=== PATIENT | male | born 1975 | race Hispanic/Latino ===

== ENCOUNTER 2020-09-24 15:12 | Emergency (ER) | payer OTHER ==
--- NOTE | 2020-09-24 16:11 | Event Note ---
ED Screening Note ED Screening Note: states he has been under a lot of stress states he has not had an appetite states he has been having vomiting and diarrhea states he hit his head and had a brief episode of LOC c/o headache and neck pain hx of C7 fracture This initial assessment/diagnostic orders/clinical plan/treatment(s) is/are subject to change based on patients health status, clinical progression and re- assessment by fellow clinical providers in the ED. Further treatment and workup at subsequent clinical providers discretion. Patient/guardian urged not to elope from the ED as their condition may be serious if not clinically assessed and managed. Initial orders include: CT head/neck, EKG, labs
--- NOTE | 2020-09-24 16:15 | XRay Report ---
CHEST 2 VIEWS INDICATION: syncope. COMPARISON: None FINDINGS: Support devices: None. Heart: Within normal limits. Lungs/pleura: No acute air space or interstitial disease. No pneumothorax. Additional findings: None. IMPRESSION: No acute findings. Signer Name: Lg Esteban Jr, MD Signed: 09/24/2020 4:10 PM Workstation Name: [id number]
[2020-09-24 16:28] LABS: Basophils % (Auto) 0.3 % (0.0-1.8); Eosinophils # (Auto) 0.1 K/mm3 (0.0-0.4); Eosinophils % (Auto) 1.1 % (0.0-4.3); Hematocrit 51.6 % (35.5-45.6); Hemoglobin 17.4 gm/dl (11.8-15.2); Lymphocytes # (Auto) 1.1 K/mm3 (1.2-5.4); Mean Corpuscular HGB Conc 34 % (32-34); Mean Corpuscular Volume 88 fl (84-94); Monocytes # (Auto) 1.2 K/mm3 (0.0-0.8); Monocytes % (Auto) 14.4 % (0.0-7.3); Platelet Count 274 K/mm3 (140-440); Red Blood Count 5.84 M/mm3 (3.65-5.03); Red Cell Distribution Width 14.6 % (13.2-15.2)
--- NOTE | 2020-09-24 16:29 | Cat Scan Report ---
CT HEAD WITHOUT CONTRAST INDICATION / CLINICAL INFORMATION: syncope. TECHNIQUE: Axial imaging performed from the skull apex through the skull base without the use of cont rast. Sagittal and coronal reformatted images. All CT scans at this location are performed using CT dose reduction for ALARA by means of automated exposure control. COMPARISON: None available. FINDINGS: CEREBRAL PARENCHYMA: No significant abnormality. No acute territorial infarct. HEMORRHAGE: None. EXTRA-AXIAL SPACES: Normal in size and morphology for the patient's age. VENTRICULAR SYSTEM: Normal in size and morphology for the patient's age. MIDLINE SHIFT OR HERNIATION: None. CEREBELLUM / BRAINSTEM: No significant abnormality. CALVARIUM: No significant abnormality. ORBITS: Normal as visualized. PARANASAL SINUSES / MASTOID AIR CELLS: Normal as visualized. SOFT TISSUES of HEAD: No significant abnormality. ADDITIONAL FINDINGS: None. IMPRESSION: No acute intracranial abnormality. Signer Name: Lg Esteban Jr, MD Signed: 09/24/2020 4:24 PM Workstation Name: [id number]
[2020-09-24 16:40] LABS: Alanine Aminotransferase 19 units/L (7-56); Albumin 4.9 g/dL (3.9-5); BUN/Creatinine Ratio 16; Blood Urea Nitrogen 19 mg/dL (9-20); Calcium 8.9 mg/dL (8.4-10.2); Hemolysis Index 32
--- NOTE | 2020-09-24 17:48 | Cat Scan Report ---
CT cervical spine wo con INDICATION / CLINICAL INFORMATION: 44 years Male; hit head, had LOC, and having neck pain. TECHNIQUE: Axial CT images of the cervical spine were obtained. Sagittal and coronal reformatted images were pr oduced. All CT scans at this location are performed using CT dose reduction for ALARA by means of aut omated exposure control. COMPARISON: No previous exams are available for comparison. FINDINGS: POST-SURGICAL CHANGES: There is fusion at C7-T1 with posterior instrumentation. There is no evidence of hardware failure. The left pedicle screw at the T1 level takes slightly more medial course. ALIGNMENT: There is mild reversal of the cervical lordosis and curvature of the upper cervical spine, convex toward the left. However, there is no significant spondylolisthesis. VERTEBRAE: There is disc space narrowing with associated endplate changes at C4-5 and C5-6. Mild find ings are noted anteriorly at C3-4. However, there is no CT evidence of acute fracture of the cervical spine. INTRAVERTEBRAL DISCS: The left facet and uncovertebral joint hypertrophy at C3-4 results in marked le ft neural foraminal narrowing. There is also encroachment on the left lateral recess. The central spondylosis at C4-5 appears to encroach on the ventral cord. There is effacement of the r ight lateral recess with marked foraminal narrowing. Slightly milder narrowing is seen on the left. The posterior spondylosis at C5-6 also encroaches on the ventral cord. There is marked neural foramin al narrowing bilaterally. The neural foramen at C6-7 appear patent. PARASPINAL SOFT TISSUES: No prevertebral soft tissue fluid collections are identified. ADDITIONAL FINDINGS: None. IMPRESSION: 1. There is no CT evidence of acute fracture involving the cervical spine. 2. There are multilevel degenerative changes as detailed above. Signer Name: Sung Dunham MD Signed: 09/24/2020 5:44 PM Workstation Name: [id number]
[2020-09-24 18:27] LABS: Bilirubin,Urine NEG (Negative); Blood,Urine NEG (Negative); Color,Urine Yellow (Yellow); Mucus,Urine FEW /HPF
[2020-09-24] MEDS ORDERED: SODIUM CHLORIDE 0.9% 1000 ML 1,000 ML IV ONE ×2 (18:42→21:11)
[2020-09-24] MEDS ORDERED: HYDROcodone/ACETAMINOPHEN 5-325 MG TAB PO ONE (18:56)
[2020-09-24] MEDS ORDERED: PREGABALIN 25 MG CAP PO ONE (18:56)
--- NOTE | 2020-09-24 19:05 | Emergency Department Report ---
ED Syncope HPI - General Chief Complaint: Syncope Stated Complaint: SYNCOPE Time Seen by Provider: 09/24/20 16:09 Source: patient Exam Limitations: no limitations - History of Present Illness Initial Comments: 44-year-old male with a past medical history of depression, bipolar disorder, PTSD, hypothyroidism, and chronic pain secondary to previous injury (with history of spinal fusion to C7-T1) presents to the hospital from [place] with complaints of syncopal episode. Patient states he is been depressed and stressed and not eating or drinking appropriately for the last 4 days. Patient reports that he is also had watery nonbloody diarrhea for the past 3 days without fever fever. He had one episode of vomiting after drinking a lot of water but denies persistent nausea. Complains of generalized crampy abdominal pain. Today patient went to the bathroom, took a shower, felt weak, and had a syncopal episode while falling forward and striking his left forehead on the wa ll. He states he also has exacerbation in his chronic neck pain after fall. 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 He does not complain of chest pain or shortness of breath As per MAR provided by [place] patient is currently taking multiple psychiatric medications including but not limited to lithium, clonidine, and Adderall Patient spent initial part of interview explaining all the chronic pain issues he has secondary to previous injury and surgeries that his neck pain was exacerbated by the syncopal episode - Related Data Allergies/Adverse Reactions: Allergies adhesive Allergy (Verified 12/28/14 16:35) Rash ketorolac tromethamine [From Toradol] Allergy (Verified 12/28/14 16:35) Unknown naltrexone Allergy (Verified 12/28/14 16:36) Unknown Home Medications: Ambulatory Orders Diphenoxylate/Atropine [Lomotil] 1 tab PO QID PRN #20 tablet 12/28/14 HYDROcodone/APAP 10-325 [[place] 10-325 mg TAB] 10 - 325 mg PO PRN PRN 12/28/14 HYDROcodone/APAP 5-325 [[place] 5/325] 1 - 2 each PO Q6HR PRN #14 tablet 12/28/14 Levothyroxine [Synthroid] 1 mcg PO QAM 12/28/14 [place] Carbonate [[place] Carbonate ER] 450 mg PO BID 12/28/14 OLANzapine [ZyPREXA] 5 mg PO QDAY 12/28/14 Pregabalin [Lyrica] 200 mg PO BID 12/28/14 Promethazine [Phenergan] 25 mg PO Q6H PRN #20 tablet 12/28/14 Promethazine [Phenergan] 25 mg [place] Q6HR PRN #10 supp.rect 12/28/14 Testosterone [Androgel 1%] 1 applicatio TD QDAY 12/28/14 clonazePAM [KlonoPIN] 1 mg PO TID PRN 12/28/14 Hydrocortisone [Hydrocortisone 2.5% LOTION] 1 applicatio TP TID PRN #1 bottle 09/24/20 Ondansetron [Zofran Odt] 4 mg PO Q8HR PRN #14 tab.rapdis 09/24/20 ED Review of Systems ROS: Stated complaint: SYNCOPE Other details as noted in HPI Comment: All other systems reviewed and negative ED Past Medical Hx - Past Medical History Previous Medical History?: Yes Hx Psychiatric Treatment: Yes (depression, bipolar, PTSD) Additional medical history: hypothyroidism - Surgical History Additional Surgical History: right femur jana, plate in forehead, spinal fusion C7-T1 - Social History Smoking Status: Never Smoker Substance Use Type: None - Medications Home Medications: Home Medications Medication Instructions Recorded Confirmed Last Taken Type Diphenoxylate/Atropine [Lomotil] 1 tab PO QID PRN #20 tablet 12/28/14 Unknown Rx HYDROcodone/APAP 10-325 [[place] 10 - 325 mg PO PRN PRN 12/28/14 12/28/14 1 Day Ago History 10-325 mg TAB] ~12/27/14 HYDROcodone/APAP 5-325 [[place] 1 - 2 each PO Q6HR PRN #14 tablet 12/28/14 Unknown Rx 5/325] Levothyroxine [Synthroid] 1 mcg PO QAM 12/28/14 12/28/14 12/28/14 History [place] Carbonate [[place] 450 mg PO BID 12/28/14 12/28/14 12/28/14 History Carbonate ER] OLANzapine [ZyPREXA] 5 mg PO QDAY 12/28/14 12/28/14 12/28/14 History Pregabalin [Lyrica] 200 mg PO BID 12/28/14 12/28/14 12/28/14 History Promethazine [Phenergan] 25 mg PO Q6H PRN #20 tablet 12/28/14 Unknown Rx Promethazine [Phenergan] 25 mg [place] Q6HR PRN #10 supp.rect 12/28/14 Unknown Rx Testosterone [Androgel 1%] 1 applicatio TD QDAY 12/28/14 12/28/14 12/28/14 History clonazePAM [KlonoPIN] 1 mg PO TID PRN 12/28/14 12/28/14 12/28/14 History Hydrocortisone [Hydrocortisone 1 applicatio TP TID PRN #1 bottle 09/24/20 Unknown Rx 2.5% LOTION] Ondansetron [Zofran Odt] 4 mg PO Q8HR PRN #14 tab.rapdis 09/24/20 Unknown Rx ED Physical Exam - General Limitations: No Limitations - Other Other exam information: General: No acute distress Head: Superficial abrasion to left forehead Eyes: normal appearance ENT: Moist mucous membranes Neck: Surgical scar noted to midline posterior neck at area of fusion surgery. Tenderness to right cervical muscles. Full range of motion Chest: Clear to auscultation bilaterally CV: Regular rate and rhythm Abdomen: Soft, normal bowel sounds, mild generalized tenderness, nondistended, no rebound or guarding Back: Normal inspection Extremity: Normal inspection, full range of motion Neuro: Alert O x 3, no facial asymmetry, speech clear, no gross motor sensory deficit Psych: Appropriate behavior Skin: Mild erythematous rash to on the face adjacent to the nose bilaterally. Rash is at area that is typically covered by a surgical mass ED Course Vital Signs 09/24/20 15:27 Temperature 97.4 F L Pulse Rate 90 Respiratory 18 Rate Blood Pressure 135/91 O2 Sat by Pulse 99 Oximetry ED Medical Decision Making - Lab Data Result diagrams: 09/24/20 15:52 09/24/20 15:52 Lab Results 09/24/20 09/24/20 09/24/20 Range/Units 15:52 15:52 18:11 WBC 8.4 (4.5-11.0) K/mm3 RBC 5.84 H (3.65-5.03) M/mm3 Hgb 17.4 H (11.8-15.2) gm/dl Hct 51.6 H (35.5-45.6) % MCV 88 (84-94) fl MCH 30 (28-32) pg MCHC 34 (32-34) % RDW 14.6 (13.2-15.2) % Plt Count 274 (140-440) K/mm3 Lymph % (Auto) 13.0 L (13.4-35.0) % [place] % (Auto) 14.4 H (0.0-7.3) % Eos % (Auto) 1.1 (0.0-4.3) % Baso % (Auto) 0.3 (0.0-1.8) % Lymph # (Auto) 1.1 L (1.2-5.4) K/mm3 [place] # (Auto) 1.2 H (0.0-0.8) K/mm3 Eos # (Auto) 0.1 (0.0-0.4) K/mm3 Baso # (Auto) 0.0 (0.0-0.1) K/mm3 Seg Neutrophils % 71.2 H (40.0-70.0) % Seg Neutrophils # 6.0 (1.8-7.7) K/mm3 Sodium 140 (137-145) mmol/L Potassium 4.2 (3.6-5.0) mmol/L Chloride 104.4 (98-107) mmol/L Carbon Dioxide 24 (22-30) mmol/L Anion Gap 16 mmol/L BUN 19 (9-20) mg/dL Creatinine 1.2 (0.8-1.3) mg/dL Estimated GFR > 60 ml/min BUN/Creatinine Ratio 16 % Glucose 96 (75-100) mg/dL Calcium 8.9 (8.4-10.2) mg/dL Total Bilirubin 0.40 (0.1-1.2) mg/dL AST 17 (5-40) units/L ALT 19 (7-56) units/L Alkaline Phosphatase 90 (35-129) units/L Troponin T < 0.010 (0.00-0.029) ng/mL Total Protein 7.1 (6.3-8.2) g/dL Albumin 4.9 (3.9-5) g/dL Albumin/Globulin Ratio 2.2 % Urine Color Yellow (Yellow) Urine Turbidity Clear (Clear) Urine pH 6.0 (5.0-7.0) Ur Specific [place] 1.026 (1.003-1.030) Urine Protein 30 mg/dl (Negative) mg/dL Urine Glucose (UA) Neg (Negative) mg/dL Urine Ketones Neg (Negative) mg/dL Urine Blood Neg (Negative) Urine Nitrite Neg (Negative) Urine Bilirubin Neg (Negative) Urine Urobilinogen 2.0 (<2.0) mg/dL Ur Leukocyte Esterase Neg (Negative) Urine WBC (Auto) 1.0 (0.0-6.0) /HPF Urine RBC (Auto) 1.0 (0.0-6.0) /HPF Urine Mucus Few /HPF [place] (0.0-1.2) mmol/L 09/24/20 Range/Units 18:53 WBC (4.5-11.0) K/mm3 RBC (3.65-5.03) M/mm3 Hgb (11.8-15.2) gm/dl Hct (35.5-45.6) % MCV (84-94) fl MCH (28-32) pg MCHC (32-34) % RDW (13.2-15.2) % Plt Count (140-440) K/mm3 Lymph % (Auto) (13.4-35.0) % [place] % (Auto) (0.0-7.3) % Eos % (Auto) (0.0-4.3) % Baso % (Auto) (0.0-1.8) % Lymph # (Auto) (1.2-5.4) K/mm3 [place] # (Auto) (0.0-0.8) K/mm3 Eos # (Auto) (0.0-0.4) K/mm3 Baso # (Auto) (0.0-0.1) K/mm3 Seg Neutrophils % (40.0-70.0) % Seg Neutrophils # (1.8-7.7) K/mm3 Sodium (137-145) mmol/L Potassium (3.6-5.0) mmol/L Chloride (98-107) mmol/L Carbon Dioxide (22-30) mmol/L Anion Gap mmol/L BUN (9-20) mg/dL Creatinine (0.8-1.3) mg/dL Estimated GFR ml/min BUN/Creatinine Ratio % Glucose (75-100) mg/dL Calcium (8.4-10.2) mg/dL Total Bilirubin (0.1-1.2) mg/dL AST (5-40) units/L ALT (7-56) units/L Alkaline Phosphatase (35-129) units/L Troponin T (0.00-0.029) ng/mL Total Protein (6.3-8.2) g/dL Albumin (3.9-5) g/dL Albumin/Globulin Ratio % Urine Color (Yellow) Urine Turbidity (Clear) Urine pH (5.0-7.0) Ur Specific [place] (1.003-1.030) Urine Protein (Negative) mg/dL Urine Glucose (UA) (Negative) mg/dL Urine Ketones (Negative) mg/dL Urine Blood (Negative) Urine Nitrite (Negative) Urine Bilirubin (Negative) Urine Urobilinogen (<2.0) mg/dL Ur Leukocyte Esterase (Negative) Urine WBC (Auto) (0.0-6.0) /HPF Urine RBC (Auto) (0.0-6.0) /HPF Urine Mucus /HPF [place] 0.5 (0.0-1.2) mmol/L - EKG Data -: EKG Interpreted by [place] EKG shows normal: sinus rhythm, ST-T waves (no stemi) Rate: normal (89) - Radiology Data Radiology results: report reviewed CT HEAD WITHOUT CONTRAST INDICATION / CLINICAL INFORMATION: syncope. TECHNIQUE: Axial imaging performed from the skull apex through the skull base without the use of contrast. Sagittal and coronal reformatted images. All CT scans at this location are performed using CT dose reduction for ALARA by means of automated exposure control. COMPARISON: None available. FINDINGS: CEREBRAL PARENCHYMA: No significant abnormality. No acute territorial infarct. HEMORRHAGE: None. EXTRA-AXIAL SPACES: Normal in size and morphology for the patient's age. VENTRICULAR SYSTEM: Normal in size and morphology for the patient's age. MIDLINE SHIFT OR HERNIATION: None. CEREBELLUM / BRAINSTEM: No significant abnormality. CALVARIUM: No significant abnormality. ORBITS: Normal as visualized. PARANASAL SINUSES / MASTOID AIR CELLS: Normal as visualized. SOFT TISSUES of HEAD: No significant abnormality. ADDITIONAL FINDINGS: None. IMPRESSION: No acute intracranial abnormality. CT cervical spine wo con INDICATION / CLINICAL INFORMATION: 44 years Male; hit head, had LOC, and having neck pain. TECHNIQUE: Axial CT images of the cervical spine were obtained. Sagittal and coronal reformatted images were produced. All CT scans at this location are performed using CT dose reduction for ALARA by means of automated exposure control. COMPARISON: No previous exams are available for comparison. FINDINGS: POST-SURGICAL CHANGES: There is fusion at C7-T1 with posterior instrumentation. There is no evidence of hardware failure. The left pedicle screw at the T1 level takes slightly more medial course. ALIGNMENT: There is mild reversal of the cervical lordosis and curvature of the upper cervical spine, convex toward the left. However, there is no significant spondylolisthesis. VERTEBRAE: There is disc space narrowing with associated endplate changes at C4- 5 and C5-6. Mild findings are noted anteriorly at C3-4. However, there is no CT evidence of acute fracture of the cervical spine. INTRAVERTEBRAL DISCS: The left facet and uncovertebral joint hypertrophy at C3-4 results in marked left neural foraminal narrowing. There is also encroachment on the left lateral recess. The central spondylosis at C4-5 appears to encroach on the ventral cord. There is effacement of the right lateral recess with marked foraminal narrowing. Slightly milder narrowing is seen on the left. The posterior spondylosis at C5-6 also encroaches on the ventral cord. There is marked neural foraminal narrowing bilaterally. The neural foramen at C6-7 appear patent. PARASPINAL SOFT TISSUES: No prevertebral soft tissue fluid collections are identified. ADDITIONAL FINDINGS: None. IMPRESSION: 1. There is no CT evidence of acute fracture involving the cervical spine. 2. There are multilevel degenerative changes as detailed above. CHEST 2 VIEWS INDICATION: syncope. COMPARISON: None FINDINGS: Support devices: None. Heart: Within normal limits. Lungs/pleura: No acute air space or interstitial disease. No pneumothorax. Additional findings: None. IMPRESSION: No acute findings. - Medical Decision Making 44-year-old male with a past medical history of chronic pain, depression, PTSD [facility] episode after having several days of diarrhea and decreased p.o. intake secondary to depression and stress. Patient complaining of worsening neck pain and requesting pain medication. He also requested his afternoon dose of Adderall and expressed that he also takes Lyrica chronically for pain. CT head and cervical spine did not show any acute abnormality. Labs unremarkable with exception of mild elevation of specific gravity urine to indicate dehydration. EKG and troponin negative without complaints of chest pain or shortness of breath. [place] level also normal range without toxicity. Patient also wanted hydrocortisone cream for his persistent rash on his face. I suspect syncopal episode was secondary to decreased p.o. intake and dehydration. During ED stay patient was consistently in the hallway and had to be repeatedly coached to return to his room. Patient was provided p.o. [place] and Lyrica. He was informed that we do not have Adderall in the pharmacy since we do not typically give that medication in the ER. Patient was impatient during stay. After receiving p.o. medication patient became angry because he wanted IV pain medication for his symptoms. It was explained to him that he will not be receiving IV pain medication and did receive p.o. [place]. Patient then wanted to leave the department and his IV was removed prior to eloping at 20:20 21:14 pt returned to the department now more cooperative and agreeable to treatment. Will receive IVF and be d/pee Patient also provided his evening dose of lithium, Klonopin, and Tegretol in the ED pt did have an episode if vomiting x 1 upon return prior to receiving IV fluids and additional p.o. meds. Critical Care Time: No Critical care attestation.: If time is entered above; I have spent that time in minutes in the direct care of this critically ill patient, excluding procedure time. ED Disposition Clinical Impression: Syncope, Dehydration, Acute diarrhea, Chronic pain, Neck strain, Depression, Skin rash Disposition: [id number] PSY HOSP/PSY UNIT Is pt being admited?: No Condition: Stable Instructions: Syncope (ED), Syncope, [id number], Dehydration, Adult, [id number], Diarrhea, Adult, Chronic Pain, Adult, Cervical Sprain Additional Instructions: Take the medication as prescribed. Follow-up with your doctor or doctor/clinic provided. Return if symptoms worsen as indicated by your discharge instructions. Prescriptions: Hydrocortisone [Hydrocortisone 2.5% LOTION] 1 applicatio TP TID PRN #1 bottle PRN Reason: Rash Ondansetron [Zofran Odt] 4 mg PO Q8HR PRN #14 tab.rapdis PRN Reason: Nausea And Vomiting Referrals: PRIMARY CARE,MD [Primary Care Provider] - 3-[address] [facility] [Provider Group] - 3-5 Days Time of Disposition: 22:39 (d/c to anchor)
[2020-09-24] MEDS: PREGABALIN 25 MG CAP PO ONE ×2 (20:22→20:25)
[2020-09-24] MEDS ORDERED: PREGABALIN 75 MG CAP PO SCH (20:30)
[2020-09-24] MEDS ORDERED: LITHIUM CARBONATE 300 MG CAP PO ONE (21:20)
[2020-09-24] MEDS ORDERED: carBAMazepine 200 MG TAB PO ONE (21:20)
[2020-09-24] MEDS ORDERED: ONDANSETRON 4 MG/2 ML INJ IV ONE (21:25)
[2020-09-24] MEDS ORDERED: clonazePAM 0.5 MG TAB PO ONE (21:58)
[2020-09-24] MEDS ORDERED: NICOTINE 14 MG/24 HR PATCH TD ONE (22:12)
[2020-09-25] VITALS: BP 132/80
== END 2020-09-24 23:59 ==
LOC: ED 15:12
DX: S16.1XXA Strain of muscle, fascia and tendon at neck level, initial encounter (principal); R55 Syncope and collapse; E86.0 Dehydration; R19.7 Diarrhea, unspecified; R21 Rash and other nonspecific skin eruption; F32.9 Major depressive disorder, single episode, unspecified; Z98.890 Other specified postprocedural states; Z88.8 Allergy status to other drugs, medicaments and biological substances; X58.XXXA Exposure to other specified factors, initial encounter; Y93.89 Activity, other specified; Y92.89 Other specified places as the place of occurrence of the external cause; Y99.8 Other external cause status
CPT/HCPCS: 36415; 70450; 71046; 72125; 80053; 80178; 81001; 84484; 85025; 93005; 96361; 96374; 99284; J2405; J7030